=== PATIENT | female | born 1995 | race African-American/Black ===

== ENCOUNTER 2017-09-17 14:16 | Emergency (ER) | payer MEDICAID ==
[~2017-09-17] VITALS: Ht 170.2 cm; Wt 69.0 kg
[2017-09-17 16:10] LABS: CLARITY URINE CLEAR (CLEAR); COLOR URINE YELLOW (YELLOW); GLUCOSE URINE NEGATIVE (NEGATIVE); KETONES URINE NEGATIVE (NEGATIVE); LEUKOCYTE ESTERASE URINE TRACE (NEGATIVE); NITRITE URINE NEGATIVE (NEGATIVE); OCCULT BLOOD URINE NEGATIVE (NEGATIVE); PROTEIN URINE NEGATIVE (NEGATIVE); SPECIFIC GRAVITY URINE 1.021 (1.005-1.030)
[2017-09-17 18:35] LABS: BASOPHILS % 0.9 % (0.0-2.0); EOSINOPHILS % 1.5 % (0.0-5.0); HEMATOCRIT. 41.5 % (36.0-48.0); HEMOGLOBIN. 13.8 g/dL (12.0-16.0); LYMPHOCYTES % 38.7 % (20.0-50.0); MEAN CORPUSCULAR HEMOGLOBIN 30.2 pg (28.0-32.0); MEAN PLATELET VOLUME 9.2 fl (7.4-10.4); MONOCYTES % 7.1 % (2.0-8.0); NEUTROPHILS % 51.8 % (40.0-76.0); PLATELET 244 x1000/uL (130-400); RED BLOOD CELL COUNT 4.56 mill/uL (4.2-5.4); RED CELL DISTRIBUTION WIDTH 13.5 % (11.6-14.6)
[2017-09-17 18:58] LABS: B-HCG QUANTITATIVE < 1 mIU/mL (<3); CARBON DIOXIDE 27 mEq/L (21-32); CHLORIDE 105 mEq/L (98-107)
[2017-09-17 20:28] VITALS: BP 106/57
== END 2017-09-17 20:31 | disposition home or self-care (01) ==
LOC: ER 14:16
DX: N39.0 Urinary tract infection, site not specified (principal)
CPT/HCPCS: 36415; 80053; 81001; 81025; 84702; 85025; 99284; Z7610

== ENCOUNTER 2020-01-11 11:49 | Emergency (ER) | payer MEDICAID ==
[~2020-01-11] VITALS: Ht 170.2 cm; Wt 82.5 kg
[2020-01-11] MEDS ORDERED: IBUPROFEN 600MG TABLET PO STA (14:01)
[2020-01-11 16:25] VITALS: BP 105/85
== END 2020-01-11 16:44 | disposition home or self-care (01) ==
LOC: ER 11:49
DX: S99.821A Other specified injuries of right foot, initial encounter (principal); W22.8XXA Striking against or struck by other objects, initial encounter; Y93.89 Activity, other specified; Y92.89 Other specified places as the place of occurrence of the external cause
CPT/HCPCS: 73630; 81025; 99283

== ENCOUNTER 2022-01-06 19:53 | Emergency (ER) | payer MEDICARE, OTHER ==
[~2022-01-06] VITALS: Ht 177.8 cm; Wt 78.0 kg
[2022-01-06] MEDS ORDERED: LIDOCAINE HCL 1% 20ML VIAL (Pyxis) INJ INFIL ONE (22:45)
[2022-01-06] MEDS ORDERED: TETANUS, DIPHTHERIA, PERTUSSIS VAC/PF 0.5ML (>10YR OLD) IM ONE (22:45)
[2022-01-06] MEDS ORDERED: LIDOCAINE HCL/PF 1% 2ML VIAL INFIL NR (23:00)
[2022-01-07 00:10] VITALS: BP 126/78
== END 2022-01-07 00:12 | disposition home or self-care (01) ==
LOC: ER 20:43
DX: S01.01XA Laceration without foreign body of scalp, initial encounter (principal); W22.8XXA Striking against or struck by other objects, initial encounter; Y93.89 Activity, other specified; Y92.89 Other specified places as the place of occurrence of the external cause; Y99.8 Other external cause status
CPT/HCPCS: 12002; 90471; 90715; 99283; J3490; Z7610

== ENCOUNTER 2022-01-24 07:14 | Emergency (ER) | payer OTHER, MEDICARE ==
[~2022-01-24] VITALS: Ht 170.2 cm; Wt 79.0 kg
[2022-01-24 07:32] VITALS: BP 120/51
== END 2022-01-24 08:15 | disposition home or self-care (01) ==
LOC: ER 07:14
DX: Z48.02 Encounter for removal of sutures (principal)
CPT/HCPCS: 99281

== ENCOUNTER 2022-11-30 08:42 | Emergency (ER) | payer MEDICAID, MEDICARE, OTHER ==
[~2022-11-30] VITALS: Ht 172.7 cm; Wt 80.0 kg
[2022-11-30 08:55] VITALS: BP 110/74
[2022-11-30] MEDS ORDERED: TOPUD PO (10:25)
[2022-11-30] MEDS ORDERED: IBUP-2028 MT (10:25)
[2022-11-30] MEDS ORDERED: IBUPROFEN 400MG TABLET PO ONE (10:30)
[2022-11-30] MEDS ORDERED: ACETAMINOPHEN 325MG TABLET PO ONE (10:30)
== END 2022-11-30 10:45 | disposition home or self-care (01) ==
LOC: ER 08:42
DX: S09.90XA Unspecified injury of head, initial encounter (principal); Y04.0XXA Assault by unarmed brawl or fight, initial encounter; Y93.89 Activity, other specified; Y92.89 Other specified places as the place of occurrence of the external cause; Y99.8 Other external cause status
CPT/HCPCS: 70486; 81025; 99284

== ENCOUNTER 2025-10-15 05:45 | Emergency (ER) | payer MEDICAID, OTHER ==
[~2025-10-15] VITALS: Ht 177.8 cm; Wt 78.0 kg
[~2025-10-15 05:45] MED LIST: IBUP-2028 MT; TOPUD PO
[2025-10-15 06:09] VITALS: O2SAT 100
[2025-10-15] MEDS ORDERED: LIDOCAINE HCL 1% 20ML VIAL INFIL ONE (08:45)
[2025-10-15 08:50] VITALS: BP 111/58; PULSE 88; RESP 16; TEMP 36.6; O2SAT 99
== END 2025-10-15 08:53 | disposition home or self-care (01) ==
LOC: ER 05:45
DX: S51.811A Laceration without foreign body of right forearm, initial encounter (principal); Z55.6 Problems related to health literacy; W25.XXXA Contact with sharp glass, initial encounter; Y93.89 Activity, other specified; Y92.89 Other specified places as the place of occurrence of the external cause; Y99.8 Other external cause status
CPT/HCPCS: 73090; 12002; 99283; Z7610